=== PATIENT | male | born 1975 | race Caucasian/White ===

== ENCOUNTER 2016-07-06 | Outpatient (CLI) | payer OTHER | END 2016-07-06 18:08 | disposition critical access hospital (66) | CPT/HCPCS: A0425; A0429 ==

== ENCOUNTER 2016-07-06 18:23 | Emergency (ER) | payer OTHER ==
[2016-07-06] MEDS ORDERED: KETOROLAC 30 MG/ML VIAL IVP STA (18:37)
[2016-07-06] MEDS ORDERED: DEXAMETHASONE 10 MG/ML VIAL IVP STA (18:37)
[2016-07-06] MEDS ORDERED: KETOROLAC 30 MG/ML VIAL ONE (18:37)
[2016-07-06] MEDS ORDERED: HYDROmorphone 1 MG/ML SYRINGE IVP STA ×2 (18:37→19:14)
[2016-07-06] MEDS ORDERED: HYDROmorphone 1 MG/ML SYRINGE ONE ×2 (18:37→19:19)
[2016-07-06] MEDS ORDERED: DEXAMETHASONE 10 MG/ML VIAL ONE (18:37)
[2016-07-06] MEDS ORDERED: diazePAM INJ 5 MG/ML SYRINGE IVP STA (19:14)
[2016-07-06] MEDS ORDERED: diazePAM INJ 5 MG/ML SYRINGE ONE (19:20)
[2016-07-06] MEDS ORDERED: CYCLOBENZAPRINE 10 MG Prepack 2 PO PRN (19:58)
[2016-07-06] MEDS ORDERED: oxyCOD/ACETAMIN 5 MG/325 MG TABLET PO STA (19:58)
[2016-07-06] MEDS ORDERED: oxyCOD/ACETAMIN 5 MG/325 MG TABLET PO ONE (20:00)
[2016-07-06] MEDS ORDERED: CYCLOBENZAPRINE 10 MG Prepack 2 PO ONE (20:01)
== END 2016-07-06 20:12 | disposition home or self-care (01) ==
DX: M54.6 Pain in thoracic spine (principal); G89.29 Other chronic pain
CPT/HCPCS: 96374; 96375; 96376; 99283; 99284; A9270; J1170